=== PATIENT | female | born 1945 | race Caucasian/White ===

== ENCOUNTER → 2018-04-07 | Outpatient (CLI) | payer OTHER | END | disposition home or self-care (01) | LOC: RAH 12:17 | PROVIDERS: ATTEND Internal Medicine Critical Care Medicine | DX: J44.9 Chronic obstructive pulmonary disease, unspecified (principal); M47.895 Other spondylosis, thoracolumbar region; J84.10 Pulmonary fibrosis, unspecified; R91.1 Solitary pulmonary nodule | CPT/HCPCS: 71250 ==

== ENCOUNTER → 2019-05-17 | Outpatient (CLI) | payer OTHER | END | disposition home or self-care (01) | LOC: RAH 13:16 | PROVIDERS: ATTEND Internal Medicine Critical Care Medicine | DX: J43.9 Emphysema, unspecified (principal); R91.8 Other nonspecific abnormal finding of lung field; I25.10 Atherosclerotic heart disease of native coronary artery without angina pectoris; I70.0 Atherosclerosis of aorta; N20.0 Calculus of kidney | CPT/HCPCS: 71250 ==

== ENCOUNTER 2019-10-29 13:38 | Observation (INO) | payer OTHER ==
[~2019-10-29] VITALS: Ht 149.9 cm; Wt 57.9 kg
[2019-10-29 14:34] LABS: BASOPHILS % (AUTO) 0.6 % (0.0-5.0); EOSINOPHILS % (AUTO) 3.2 % (0.0-8.0); HEMATOCRIT 43.2 % (36-48); LYMPHOCYTES % (AUTO) 25.8 % (21.0-51.0); MEAN CORPUSCULAR HEMOGLOBIN 29.2 pg (27.0-33.0); MEAN CORPUSCULAR HGB CONC 31.9 g/dL (32.0-36.0); MEAN CORPUSCULAR VOLUME 91.3 fL (79-99); MONOCYTES % (AUTO) 9.4 % (3.0-13.0); NEUTROPHILS % (AUTO) 60.7 % (40.0-77.0); PLATELET COUNT (AUTO) 323 K/uL (130-400); RED BLOOD CELL COUNT(AUTO) 4.73 MIL/uL (4.00-5.50); RED CELL DISTRIBUTION WIDTH 13.2 % (11.0-15.5); WHITE BLOOD COUNT (AUTO) 10.4 K/uL (4.8-10.8)
[2019-10-29 14:48] LABS: CREATININE 0.7 mg/dL (0.5-1.5); POTASSIUM 4.4 mmol/L (3.5-5.1)
[2019-10-29 14:53] LABS: ALBUMIN 3.5 g/dL (3.5-5.0); BILIRUBIN,TOTAL 0.5 mg/dL (0.2-1.0); TOTAL PROTEIN, SERUM 8.2 g/dL (6.0-8.3)
[2019-10-29 14:57] LABS: INR 0.94 (0.85-1.15); PARTIAL THROMBOPLASTIN TIME 27.1 SEC (26.3-35.5); PROTHROMBIN TIME 9.9 SEC (9.6-11.6)
[2019-10-29 18:04] LABS: APPEARANCE,URINE Clear (CLEAR); BILIRUBIN,URINE Negative (NEGATIVE); COLOR,URINE Yellow (YELLOW); GLUCOSE, URINE (UA) Negative (NEGATIVE); KETONES,URINE Negative (NEGATIVE); LEUKOCYTE ESTERASE ,URINE Trace (NEGATIVE); NITRATE,URINE Negative (NEGATIVE); OCCULT BLOOD,URINE Negative (NEGATIVE); PROTEIN,URINE Negative (NEGATIVE)
[2019-10-29 18:23] LABS: BACTERIA,URINE Few /HPF (None Seen); MUCUS,URINE Few LPF (None Seen); RBC,URINE 0-1 /HPF (0-1); SQUAMOUS EPITHELIAL CELL,UR Few /HPF (0-2)
[2019-10-29] MEDS ORDERED: ASPIRIN 325 MG TABLET ONE (21:10)
[2019-10-29] MEDS ORDERED: FAMOTIDINE 20MG TAB 20 MG TAB ONE (21:10)
[2019-10-29] MEDS ORDERED: SIMVASTATIN 10 MG TABLET ONE (21:10)
[2019-10-29 23:12] VITALS: BP 115/56
[2019-10-30] MEDS ORDERED: ONDANSETRON HCL 4 MG/2 ML VIAL IVP PRN (03:30)
[2019-10-30] MEDS ORDERED: ASPIRIN 325 MG TABLET PO ONE (03:30)
[2019-10-30 03:31] VITALS: BP 105/65
[2019-10-30 06:16] LABS: HEMATOCRIT 38.9 % (36-48); MEAN CORPUSCULAR HEMOGLOBIN 29.6 pg (27.0-33.0); MEAN CORPUSCULAR HGB CONC 32.9 g/dL (32.0-36.0); PLATELET COUNT (AUTO) 296 K/uL (130-400); RED BLOOD CELL COUNT(AUTO) 4.32 MIL/uL (4.00-5.50); RED CELL DISTRIBUTION WIDTH 13.2 % (11.0-15.5); WHITE BLOOD COUNT (AUTO) 6.8 K/uL (4.8-10.8)
[2019-10-30 06:36] LABS: CREATININE 0.7 mg/dL (0.5-1.5); POTASSIUM 3.9 mmol/L (3.5-5.1)
[2019-10-30 07:49] VITALS: BP 104/71
[2019-10-30] MEDS ORDERED: ASPIRIN 81MG TAB.CHEW PO SCH (09:00)
[2019-10-30] MEDS ORDERED: FAMOTIDINE 20MG TAB 20 MG TAB PO SCH (09:00)
[2019-10-30] MEDS ORDERED: SODIUM CHLORIDE 0.9% 1000ML 1,000 ML IV SCH (10:30)
[2019-10-30] MEDS ORDERED: GLUCAGON 1MG KIT 1 MG ML IM PRN (10:30)
[2019-10-30] MEDS ORDERED: DEXTROSE 50%-WATER 50 ML DISP.SYRIN IV PRN (10:30)
[2019-10-30] MEDS ORDERED: INSULIN HUMULIN R 100 UNIT/ML 3ML SQ SCH (11:30)
[2019-10-30 11:44] VITALS: BP 106/67
[2019-10-30] MEDS ORDERED: ASPI-555 PO (13:46)
[2019-10-30] MEDS ORDERED: SIMV-46 PO (13:46)
[2019-10-30 16:01] VITALS: BP 103/70
--- NOTE | 2019-10-30 17:19 | NUR ---
PATIENT GIVEN DISCHARGE ORDERS AND VERBALIZED UNDERSTANDING, MONITOR UNIT NOTIFIED OF D/C AND TELEMETRY UNIT REMOVED, REVIEWED MEDICATION AND FOLLOW-UP APPOINTMENT, DENIES PAIN AT THIS TIME. PATIENT TRANSPORTED VIA WHEELCHAIR TO [facility] AND LEFT WITH FOR HOME, NO QUESTIONS OR CONCERNS AT THIS TIME
[2019-10-30] MEDS ORDERED: SIMVASTATIN 20 MG TABLET PO SCH (21:00)
[2019-10-31] MEDS ORDERED: ENOXAPARIN SODIUM 30 MG/0.3 ML SQ SCH (09:00)
== END 2019-10-30 17:26 | disposition home or self-care (01) ==
LOC: EDH 13:38 → EDHIP 17:40 → 4CH 22:20
PROVIDERS: ADMIT Internal Medicine Critical Care Medicine; ATTEND Internal Medicine Critical Care Medicine
DX: M79.641 Pain in right hand (principal); J44.9 Chronic obstructive pulmonary disease, unspecified; I10 Essential (primary) hypertension; J32.9 Chronic sinusitis, unspecified; M25.511 Pain in right shoulder; M25.512 Pain in left shoulder; Z88.5 Allergy status to narcotic agent; Z88.0 Allergy status to penicillin; Z88.2 Allergy status to sulfonamides; Z91.041 Radiographic dye allergy status; Z88.6 Allergy status to analgesic agent; Z90.710 Acquired absence of both cervix and uterus; Z98.890 Other specified postprocedural states; Z72.0 Tobacco use
CPT/HCPCS: 36415 ×2; 70450; 70544; 70547; 70551; 71045; 80048; 80053; 81001; 82550; 84484; 85025; 85027; 85610; 85730; 93005; 99284; G0378 ×23

== ENCOUNTER 2021-12-26 10:16 | Observation (INO) | payer OTHER ==
[~2021-12-26] VITALS: Ht 149.9 cm; Wt 47.6 kg
[~2021-12-26 10:16] MED LIST: ASPI-556 PO; SIMV-46 PO
[2021-12-26 10:49] LABS: APPEARANCE,URINE CLEAR (CLEAR); BILIRUBIN,URINE NEGATIVE (NEGATIVE); COLOR,URINE YELLOW (YELLOW); GLUCOSE, URINE (UA) NEGATIVE (NEGATIVE); KETONES,URINE NEGATIVE (NEGATIVE); LEUKOCYTE ESTERASE ,URINE NEGATIVE (NEGATIVE); NITRATE,URINE NEGATIVE (NEGATIVE); OCCULT BLOOD,URINE NEGATIVE (NEGATIVE); PH,URINE 6.5 (5.0-8.0); PROTEIN,URINE NEGATIVE (NEGATIVE); UROBILINOGEN,URINE 0.2 mg/dL (0.2-1.0)
[2021-12-26 10:50] LABS: BASOPHILS % (AUTO) 0.6 % (0.0-5.0); EOSINOPHILS % (AUTO) 2.2 % (0.0-8.0); HEMATOCRIT 40.8 % (36-48); LYMPHOCYTES % (AUTO) 17.8 % (21.0-51.0); MEAN CORPUSCULAR HEMOGLOBIN 22.8 pg (27.0-33.0); MEAN CORPUSCULAR HGB CONC 29.2 g/dL (32.0-36.0); MEAN CORPUSCULAR VOLUME 78.2 fL (79-99); MONOCYTES % (AUTO) 7.8 % (3.0-13.0); NEUTROPHILS % (AUTO) 70.8 % (40.0-77.0); PLATELET COUNT (AUTO) 437 K/uL (130-400); RED BLOOD CELL COUNT(AUTO) 5.22 MIL/uL (4.00-5.50); RED CELL DISTRIBUTION WIDTH 22.3 % (11.0-15.5); WHITE BLOOD COUNT (AUTO) 11.7 K/uL (4.8-10.8)
[2021-12-26 11:01] LABS: CARBON DIOXIDE 29 mmol/L (21-32); CHLORIDE 101 mmol/L (101-111); CREATININE 0.5 mg/dL (0.5-1.5); GLOMERULAR FILTR. RATE CALC 127 mL/min (>60); GLUCOSE,RANDOM 92 mg/dL (70-105); POTASSIUM 3.1 mmol/L (3.5-5.1); SODIUM SERUM 138 mmol/L (136-145); UREA NITROGEN, BLOOD 6 mg/dL (7-18)
[2021-12-26 11:12] LABS: ALANINE AMINOTRANSFERASE 19 U/L (12-78); ALBUMIN 2.6 g/dL (3.5-5.0); ASPARTATE AMINOTRANSFERASE 18 U/L (10-37); BILIRUBIN,TOTAL 0.3 mg/dL (0.2-1.0); TOTAL PROTEIN, SERUM 6.7 g/dL (6.0-8.3)
[2021-12-26 11:13] LABS: LIPASE < 50 U/L (114-286)
[2021-12-26] MEDS ORDERED: CYCL5TAB PO (18:36)
[2021-12-26] MEDS ORDERED: DICL100G27 TP (18:37)
[2021-12-26] MEDS ORDERED: FAMO20TA8 PO (18:38)
[2021-12-26] MEDS ORDERED: ADAL40SY SQ (18:38)
[2021-12-26] MEDS ORDERED: MULT-1192 PO (18:40)
[2021-12-26] MEDS ORDERED: LIDOP TP (18:40)
[2021-12-26] MEDS ORDERED: ONDA4TAB10 PO (18:41)
[2021-12-26] MEDS ORDERED: POLY17PO4 PO (18:42)
[2021-12-26] MEDS ORDERED: PRED5TAB PO (18:43)
[2021-12-26] MEDS ORDERED: ZINC220T4 PO (18:45)
[2021-12-26] MEDS ORDERED: ONDANSETRON ODT 4MG TAB PO PRN (19:00)
[2021-12-26] MEDS ORDERED: AZITHROMYCIN 250 MG TABLET PO SCH (19:00)
[2021-12-26] MEDS ORDERED: LIDOCAINE 5% TOPICAL PATCH TP PRN (19:00)
[2021-12-26] MEDS ORDERED: POLYETHYLENE GLYCOL 3350 17 GM POWD.PACK PO PRN (19:00)
[2021-12-26] MEDS ORDERED: DICLOFENAC SODIUM 100 MG TP PRN (20:30)
[2021-12-26] MEDS ORDERED: CYCLOBENZAPRINE HCL 5 MG PO SCH (21:00)
[2021-12-26] MEDS ORDERED: SIMVASTATIN 20 MG TABLET PO SCH (21:00)
[2021-12-26] MEDS ORDERED: NON-FORMULARY MEDICATION 1 EACH (Simvastatin 40 MG) PO SCH (21:00)
[2021-12-26] MEDS: PREDNISONE 5 MG TABLET PO SCH (21:29)
[2021-12-26] MEDS: CYCLOBENZAPRINE HCL 10 MG TABLET PO SCH (21:29)
[2021-12-27 06:06] LABS: BASOPHILS % (AUTO) 0.6 % (0.0-5.0); EOSINOPHILS % (AUTO) 0.6 % (0.0-8.0); HEMATOCRIT 38.4 % (36-48); LYMPHOCYTES % (AUTO) 28.3 % (21.0-51.0); MEAN CORPUSCULAR HEMOGLOBIN 22.5 pg (27.0-33.0); MEAN CORPUSCULAR HGB CONC 29.4 g/dL (32.0-36.0); MEAN CORPUSCULAR VOLUME 76.5 fL (79-99); MONOCYTES % (AUTO) 7.8 % (3.0-13.0); NEUTROPHILS % (AUTO) 62.1 % (40.0-77.0); PLATELET COUNT (AUTO) 406 K/uL (130-400); RED BLOOD CELL COUNT(AUTO) 5.02 MIL/uL (4.00-5.50); RED CELL DISTRIBUTION WIDTH 21.9 % (11.0-15.5); WHITE BLOOD COUNT (AUTO) 7.9 K/uL (4.8-10.8)
[2021-12-27 06:23] LABS: B-TYPE NATRIURETIC PEPTIDE 69 pg/mL (0-100)
[2021-12-27 08:38] LABS: CREATININE 0.5 mg/dL (0.5-1.5); POTASSIUM 4.3 mmol/L (3.5-5.1)
[2021-12-27] MEDS ORDERED: NON-FORMULARY MEDICATION 1 EACH (Multivitamin (Multi-Vitamin Daily) 1 EACH) PO SCH (09:00)
[2021-12-27] MEDS ORDERED: MULTIVITAMIN TABLET PO SCH (09:00)
[2021-12-27] MEDS ORDERED: FAMOTIDINE 20MG TAB PO SCH (09:00)
[2021-12-27] MEDS ORDERED: ASPIRIN 81 MG EC TAB PO SCH (09:00)
[2021-12-27] MEDS ORDERED: HOME MEDICATION 1 EACH SQ SCH (09:00)
[2021-12-27] MEDS ORDERED: ASPIRIN 325MG TAB PO SCH (09:00)
[2021-12-27] MEDS ORDERED: ZINC SULFATE 50 MG PO SCH (09:00)
[2021-12-27] MEDS: PREDNISONE 5 MG TABLET PO SCH (10:13)
[2021-12-27] MEDS: CYCLOBENZAPRINE HCL 10 MG TABLET PO SCH ×2 (10:13→14:20)
[2021-12-27] MEDS ORDERED: ZINC SULFATE 220 CAPSULE PO SCH (12:00)
[2021-12-27 17:38] VITALS: BP 145/87
== END 2021-12-27 17:30 | disposition home or self-care (01) ==
LOC: EDH 10:16 → EDHIP 18:00
PROVIDERS: ADMIT Internal Medicine Critical Care Medicine; ATTEND Internal Medicine Critical Care Medicine
DX: U07.1 COVID-19 (principal); E78.5 Hyperlipidemia, unspecified; M06.9 Rheumatoid arthritis, unspecified; J44.9 Chronic obstructive pulmonary disease, unspecified; D84.9 Immunodeficiency, unspecified; Z88.0 Allergy status to penicillin; Z79.82 Long term (current) use of aspirin; Z90.710 Acquired absence of both cervix and uterus; Z79.899 Other long term (current) drug therapy
CPT/HCPCS: 36415 ×2; 70450; 71045 ×2; 80048; 80053; 81003; 83690; 83880; 84484; 85025 ×2; 87635; 93005; 99285; C9803; G0378 ×23; J7512 ×2